=== PATIENT | female | born 1950 | race Caucasian/White ===

== ENCOUNTER 2024-11-08 09:28 | Outpatient (AMB) | payer MEDICARE, OTHER, SELFPAY ==
[2024-11-08 10:03] VITALS: BP 177/77; PULSE 181; RESP 19; TEMP 36.6; O2SAT 81; BMI 33.0
--- NOTE | 2024-11-08 10:03 | PD.ORTHCLVIS ---
Vital signs 11/08/24 10:03 Height 1.6 m Height Method Stated Weight 84.453 kg Weight Measurement Method Standing Scale BMI 33.0 BP 177/77 H Blood Pressure Source Automatic Cuff Blood Pressure Location Left Upper Arm Position Sitting Respiration 19 Pulse 181 H Pulse Source Monitor Temp 97.9 F Temp Source Temporal Artery Scan Pulse Oximetry (%) 81 L Oxygen Delivery Method Room Air Med/Allergies Allergies & Medications Allergies No Known Allergies Allergy (Verified 11/08/24 10:03) Medication Reconciliation acyclovir 400 mg tablet 400 mg PO QDAY 08/14/23 [History Confirmed 11/08/24] alendronate 10 mg tablet 10 mg PO QDAY 08/14/23 [History Confirmed 11/08/24] amlodipine 10 mg tablet 10 mg PO QDAY 08/14/23 [History Confirmed 11/08/24] atorvastatin 40 mg tablet 40 mg PO QDAY 08/14/23 [History Confirmed 11/08/24] baclofen 20 mg tablet 20 mg PO QDAY 08/14/23 [History Confirmed 11/08/24] ezetimibe 10 mg tablet 10 mg PO QDAY 08/14/23 [History Confirmed 11/08/24] furosemide 20 mg tablet 20 mg PO QDAY 08/14/23 [History Confirmed 11/08/24] gabapentin 300 mg capsule 300 mg PO QDAY 08/14/23 [History Confirmed 11/08/24] hydrocodone 7.5 mg-acetaminophen 325 mg/15 mL oral solution 15 ml PO QID PRN 08/14/23 [History Confirmed 11/08/24] levothyroxine 50 mcg tablet (Synthroid) 50 mcg PO QDAY 08/14/23 [History Confirmed 11/08/24] lidocaine 3.5 % topical patch patch topical 08/14/23 [History Confirmed 11/08/24] lisinopril 40 mg tablet 40 mg PO QDAY 08/14/23 [History Confirmed 11/08/24] metoprolol succ 50 mg-hydrochlorothiazide 12.5 mg tablet,ext.rel 24 hr tab PO 08/14/23 [History Confirmed 11/08/24] nortriptyline 50 mg capsule 50 mg PO QDAY 08/14/23 [History Confirmed 11/08/24] omeprazole 20 mg capsule,delayed release 20 mg PO QDAY 08/14/23 [History Confirmed 11/08/24] potassium chloride 10 mEq tablet,extended release (Klor-Con) 10 meq PO QDAY 08/14/23 [History Confirmed 11/08/24] sumatriptan succinate 100 mg tablet 100 mg PO Q2H PRN 08/14/23 [History Confirmed 11/08/24] Exam Exam Patient is in no acute distress and is cooperative with the examination today. Patient has a normal mood and affect. Breathing is nonlabored. In no respiratory distress. Bilateral extremities were evaluated and demonstrates sensation intact to light touch. Palpable pedal pulses are present. No significant edema is present. Bilateral hips demonstrate full strength and range of motion. She is tender to palpation over the greater trochanteric Assessment and Plan Problem List (1) Trochanteric bursitis of right hip: Status: Acute Plan: We discussed nonoperative and operative options for her trochanteric bursa. We will proceed with a right hip injection today in the bursa. We discussed the risk and benefits joint to proceed with this Recommend hip bursa cortisone injection as patient would like to proceed with conservative treatment at this time. The risks and benefits of the procedure were reviewed with the patient and patient gave verbal consent to continue with the procedure. Procedure: performed by Dr. Cody Using sterile technique the right hip bursa was thoroughly prepped with alcohol prep, and approximately 1 cc of Kenalog 40 mg/mL and 4 cc of 1% Lidocaine was injected without resistance. The patient tolerated the procedure well. Recommend hip bursa cortisone injection as patient would like to proceed with conservative treatment at this time. The risks and benefits of the procedure were reviewed with the patient and patient gave verbal consent to continue with the procedure. Procedure: performed by Dr. Cody Using sterile technique the left hip bursa was thoroughly prepped with alcohol prep, and approximately 1 cc of Kenalog 40 mg/mL and 4 cc of 1% Lidocaine was injected without resistance. The patient tolerated the procedure well. (2) Trochanteric bursitis, left hip: Status: Acute Advanced Care Planning Discussion Advance care planning discussed with:: patient Office Procedures GNS Level of Care Nursing/Assessment Patient Status: Established Patient Nursing Assessment/Reassesment: Medication Reconciliation, Update PMH in EMR and Vital Signs Coordination of Care: Complex Care and Chronic Disease 1-5, Education Complex Pt/Fam, Consent,records obtained, informed consent, Results/Orders obtained and Staff clarify orders Established Patient Charge Established Patient Point Assignment: 95 Established Patient Point Charge: EP Level 3 (80-115) Surgical Proc/IM SQ injection Major Surgical Procedure: Yes (BILATERAL HIP INJECTION ) Medication Given Medication Given Medication Given: Yes Documented Dose Given: 8 Route: Infiitration Medication Given Medication Given Medication Given: Yes Documented Dose Given: 2 Route: Infiitration Office Meds Xylocaine 10 mg/mL (1 %) injection solution Performing Provider: Lazarus Cody MD Performing Location: [facility] Administered by: Lazarus Cody MD on 11/08/24 10:18 Dose Route Admin Location Dispensed Lot Number Expiration Date [facility] Telecommunications Technician 40 mL Infiltration 40 mL [id number] [employer] triamcinolone acetonide 40 mg/mL suspension for injection Performing Provider: Lazarus Cody MD Performing Location: [facility] Administered by: Lazarus Cody MD on 11/08/24 10:18 Dose Route Admin Location Dispensed Lot Number Expiration Date 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 [employer] Required: No PCP or OBGYN visit in last 3 months: Yes Hx Now: No Do You Feel Safe at Home: Yes Authorities Contacted: N/A Questionairres Past Medical History Past Medical History Have you ever been diagnosed with any of the following: Respiratory Problems Smoking: No Smoking Cessation Counseling: No Smoking Exposure: No Tobacco Use: No Clubbing: No Subjective Visit Visit for: follow up visit Immunization / Flu Flu Vaccine in the Last 12 Months: No Flu Vaccine Exclusion Criteria: No Exclusion Criteria History of Present Illness Chief complaint: Bilateral hip trochanteric bursitis Albina is a 74-year-old female with bilateral hip trochanteric bursitis. She is done well with bilateral hip cortisone injections. It has been 3 months since the last when she would like new ones. She cannot take anti-inflammatories because of her kidneys Pain Pain level (0-10): 6 Pain duration: ALL DAY Pain location: inside (medial) and outside (lateral) Pain quality: sharp, aching and burning Pain timing: increases with activity Associated signs & symptoms: numbness and stiffness Ambulatory data Ambulatory device: cane Treatments Improvement with previous injections: No Improvement with PT: No Improvement with NSAIDS: no Review of Systems Review of Systems: All systems negative unless otherwise noted in HPI.
== END 2024-11-08 10:22 | disposition home or self-care (01) ==
LOC: HODSRG 09:28
PROVIDERS: PCP Family Medicine; Referring Provider Family Medicine; Supervising Provider Orthopaedic Surgery Adult Reconstructive Orthopaedic Surgery; Visit Provider Orthopaedic Surgery Adult Reconstructive Orthopaedic Surgery
DX: M70.61 Trochanteric bursitis, right hip (principal); M70.62 Trochanteric bursitis, left hip
CPT/HCPCS: 20610; 99213; J3301; J3490; G0463

== ENCOUNTER 2025-02-07 09:58 | Outpatient (AMB) | payer MEDICARE, OTHER, SELFPAY ==
[2025-02-07 10:18] VITALS: BP 147/69; PULSE 74; RESP 19; TEMP 36.5; O2SAT 97; BMI 32.2
--- NOTE | 2025-02-07 10:18 | ORTHONT_ITS ---
Vital signs 02/07/25 10:18 Height 1.6 m Height Method Stated Weight 82.554 kg Weight Measurement Method Stated by Patient BMI 32.2 BP 147/69 H Blood Pressure Source Automatic Cuff Blood Pressure Location Right Upper Arm Position Sitting Respiration 19 Pulse 74 Pulse Source Monitor Temp 97.7 F Temp Source Temporal Artery Scan Pulse Oximetry (%) 97 Oxygen Delivery Method Room Air Med/Allergies Allergies & Medications Allergies No Known Allergies Allergy (Verified 02/07/25 10:21) Medication Reconciliation acyclovir 400 mg tablet 400 mg PO QDAY 08/14/23 [History Confirmed 02/07/25] alendronate 10 mg tablet 10 mg PO QDAY 08/14/23 [History Confirmed 02/07/25] amlodipine 10 mg tablet 10 mg PO QDAY 08/14/23 [History Confirmed 02/07/25] atorvastatin 40 mg tablet 40 mg PO QDAY 08/14/23 [History Confirmed 02/07/25] baclofen 20 mg tablet 20 mg PO QDAY 08/14/23 [History Confirmed 02/07/25] ezetimibe 10 mg tablet 10 mg PO QDAY 08/14/23 [History Confirmed 02/07/25] furosemide 20 mg tablet 20 mg PO QDAY 08/14/23 [History Confirmed 02/07/25] gabapentin 300 mg capsule 300 mg PO QDAY 08/14/23 [History Confirmed 02/07/25] hydrocodone 7.5 mg-acetaminophen 325 mg/15 mL oral solution 15 ml PO QID PRN 08/14/23 [History Confirmed 02/07/25] levothyroxine 50 mcg tablet (Synthroid) 50 mcg PO QDAY 08/14/23 [History Confirmed 02/07/25] lidocaine 3.5 % topical patch patch topical 08/14/23 [History Confirmed 02/07/25] lisinopril 40 mg tablet 40 mg PO QDAY 08/14/23 [History Confirmed 02/07/25] metoprolol succ 50 mg-hydrochlorothiazide 12.5 mg tablet,ext.rel 24 hr tab PO 08/14/23 [History Confirmed 02/07/25] nortriptyline 50 mg capsule 50 mg PO QDAY 08/14/23 [History Confirmed 02/07/25] omeprazole 20 mg capsule,delayed release 20 mg PO QDAY 08/14/23 [History Confirmed 02/07/25] potassium chloride 10 mEq tablet,extended release (Klor-Con) 10 meq PO QDAY 08/14/23 [History Confirmed 02/07/25] sumatriptan succinate 100 mg tablet 100 mg PO Q2H PRN 08/14/23 [History Confirmed 02/07/25] Exam Exam Patient is in no acute distress and is cooperative with the examination today. Patient has a normal mood and affect. Breathing is nonlabored. In no respiratory distress. Bilateral extremities were evaluated and demonstrates sensation intact to light touch. Palpable pedal pulses are present. No significant edema is present. Bilateral hips demonstrate full strength and range of motion. She is tender to palpation over the greater trochanter Assessment and Plan Problem List (1) Trochanteric bursitis of right hip: Status: Acute Plan: We discussed nonoperative and operative options for her trochanteric bursa. We will proceed with a right hip injection today in the bursa. We discussed the risk and benefits joint to proceed with this Recommend hip bursa cortisone injection as patient would like to proceed with conservative treatment at this time. The risks and benefits of the procedure were reviewed with the patient and patient gave verbal consent to continue with the procedure. Procedure: performed by Dr. Cody Using sterile technique the right hip bursa was thoroughly prepped with alcohol prep, and approximately 1 cc of Kenalog 40 mg/mL and 4 cc of 1% Lidocaine was injected without resistance. The patient tolerated the procedure well. Recommend hip bursa cortisone injection as patient would like to proceed with conservative treatment at this time. The risks and benefits of the procedure were reviewed with the patient and patient gave verbal consent to continue with the procedure. Procedure: performed by Dr. Cody Using sterile technique the left hip bursa was thoroughly prepped with alcohol prep, and approximately 1 cc of Kenalog 40 mg/mL and 4 cc of 1% Lidocaine was injected without resistance. The patient tolerated the procedure well. (2) Trochanteric bursitis, left hip: Status: Acute Advanced Care Planning Discussion Advance care planning discussed with:: patient Office Procedures GNS Level of Care Nursing/Assessment Patient Status: Established Patient Nursing Assessment/Reassesment: Medication Reconciliation, Update PMH in EMR and Vital Signs Coordination of Care: Complex Care/Chronic Disease 5 or more, Education Complex Pt/Fam, Consent,records obtained, informed consent, Results/Orders obtained and Staff clarify orders Established Patient Charge Established Patient Point Assignment: 105 Established Patient Point Charge: EP Level 3 (80-115) Surgical Proc/IM SQ injection Major Surgical Procedure: Yes (BILATERAL HIP INJECTION ) Medication Given Medication Given Medication Given: Yes Documented Dose Given: 4 Route: Infiitration Medication Given Medication Given Medication Given: Yes Documented Dose Given: 2 Route: Infiitration Medication Given Medication Given Medication Given: Yes Documented Dose Given: 2 Route: Infiitration Office Meds Xylocaine 10 mg/mL (1 %) injection solution Performing Provider: Lazarus Cody MD Performing Location: [facility] Administered by: Lazarus Cody MD on 02/07/25 10:29 Dose Route Admin Location Dispensed Lot Number Expiration Date [facility] Registry Nurse 40 mL Infiltration 40 mL Xylocaine 10 mg/mL (1 %) injection solution Performing Provider: Lazarus Cody MD Performing Location: [facility] Administered by: Lazarus Cody MD on 02/07/25 10:26 Dose Route Admin Location Dispensed Lot Number Expiration Date [facility] Registry Nurse 40 mL Infiltration HIPS 40 mL [id number] [facility] triamcinolone acetonide 40 mg/mL suspension for injection Performing Provider: Lazarus Cody MD Performing Location: [facility] Administered by: Lazarus Cody MD on 02/07/25 10:26 Dose Route Admin Location Dispensed Lot Number Expiration Date [facility] Registry Nurse 80 mg intra-articular HIPS 2 mL [id number] 06/02/26 4692-7303-40 [employer] triamcinolone acetonide 40 mg/mL suspension for injection Performing Provider: Lazarus Cody MD Performing Location: [facility] Administered by: Lazarus Cody MD on 02/07/25 10:26 Dose Route Admin Location Dispensed Lot Number Expiration Date [facility] Registry Nurse 80 mg intra-articular 2 mL [id number] 06/02/26 2063-0539-56 [employer] [place] Intake Visit Data Collection New Patient or Established: Established Patient (seen at [facility] within 3 years) Reason for Visit:: BILATERAL HIP PAIN/INJECTION Settlement Agent Required: Yes Do You Feel Safe at Home: Yes Questionairres Past Medical History Past Medical History Have you ever been diagnosed with any of the following: Respiratory Problems Smoking: No Smoking Cessation Counseling: No Smoking Exposure: No Tobacco Use: No Clubbing: No Subjective Visit Visit for: follow up visit, hip and injections Immunization / Flu Flu Vaccine in the Last 12 Months: Yes Flu Vaccine Exclusion Criteria: No Exclusion Criteria and Already Received History of Present Illness Chief complaint: Bilateral hip trochanteric bursitis Albina is a 74-year-old female with bilateral hip trochanteric bursitis. She is done well with bilateral hip cortisone injections. It has been 3 months since the last when she would like new ones. She cannot take anti-inflammatories because of her kidneys Personal History Red flag PMH: BMI and none BMI Counceling provided: Yes Pain Pain level (0-10): 6 Pain duration: ALL DAY Pain location: inside (medial) and outside (lateral) Pain quality: sharp, aching and burning Pain timing: increases with activity Associated signs & symptoms: numbness and stiffness Ambulatory data Ambulatory device: cane Treatments Improvement with previous injections: No Improvement with PT: No Improvement with NSAIDS: no Review of Systems Review of Systems: All systems negative unless otherwise noted in HPI.
== END 2025-02-07 10:36 | disposition home or self-care (01) ==
LOC: HODSRG 09:58
PROVIDERS: PCP Family Medicine; Referring Provider Family Medicine; Supervising Provider Orthopaedic Surgery Adult Reconstructive Orthopaedic Surgery; Visit Provider Orthopaedic Surgery Adult Reconstructive Orthopaedic Surgery
DX: M70.61 Trochanteric bursitis, right hip (principal); M70.62 Trochanteric bursitis, left hip
CPT/HCPCS: 20610; 99213; J3301; J3490; G0463

== ENCOUNTER 2025-05-09 12:55 | Outpatient (AMB) | payer MEDICARE, OTHER, SELFPAY ==
--- NOTE | 2025-05-09 13:22 | ORTHONT_ITS ---
Vital signs 05/09/25 13:23 Height 1.6 m Height Method Stated Weight 84.482 kg Weight Measurement Method Standing Scale BMI 33.0 BP 115/67 Blood Pressure Source Automatic Cuff Blood Pressure Location Left Upper Arm Position Sitting Respiration 18 Pulse 76 Pulse Source Monitor Temp 97.6 F Temp Source Temporal Artery Scan Pulse Oximetry (%) 92 L Oxygen Delivery Method Room Air Med/Allergies Allergies & Medications Allergies No Known Allergies Allergy (Verified 05/09/25 13:27) Medication Reconciliation acyclovir 400 mg tablet 400 mg PO QDAY 08/14/23 [History Confirmed 05/09/25] alendronate 10 mg tablet 10 mg PO QDAY 08/14/23 [History Confirmed 05/09/25] amlodipine 10 mg tablet 10 mg PO QDAY 08/14/23 [History Confirmed 05/09/25] atorvastatin 40 mg tablet 40 mg PO QDAY 08/14/23 [History Confirmed 05/09/25] baclofen 20 mg tablet 20 mg PO QDAY 08/14/23 [History Confirmed 05/09/25] ezetimibe 10 mg tablet 10 mg PO QDAY 08/14/23 [History Confirmed 05/09/25] furosemide 20 mg tablet 20 mg PO QDAY 08/14/23 [History Confirmed 05/09/25] gabapentin 300 mg capsule 300 mg PO QDAY 08/14/23 [History Confirmed 05/09/25] hydrocodone 7.5 mg-acetaminophen 325 mg/15 mL oral solution 15 ml PO QID PRN 08/14/23 [History Confirmed 05/09/25] levothyroxine 50 mcg tablet (Synthroid) 50 mcg PO QDAY 08/14/23 [History Confirmed 05/09/25] lidocaine 3.5 % topical patch patch topical 08/14/23 [History Confirmed 05/09/25] lisinopril 40 mg tablet 40 mg PO QDAY 08/14/23 [History Confirmed 05/09/25] metoprolol succ 50 mg-hydrochlorothiazide 12.5 mg tablet,ext.rel 24 hr tab PO 08/14/23 [History Confirmed 05/09/25] nortriptyline 50 mg capsule 50 mg PO QDAY 08/14/23 [History Confirmed 05/09/25] omeprazole 20 mg capsule,delayed release 20 mg PO QDAY 08/14/23 [History Confirmed 05/09/25] potassium chloride 10 mEq tablet,extended release (Klor-Con) 10 meq PO QDAY 08/14/23 [History Confirmed 05/09/25] sumatriptan succinate 100 mg tablet 100 mg PO Q2H PRN 08/14/23 [History Confirmed 05/09/25] Exam Exam Patient is in no acute distress and is cooperative with the examination today. Patient has a normal mood and affect. Breathing is nonlabored. In no respiratory distress. Bilateral extremities were evaluated and demonstrates sensation intact to light touch. Palpable pedal pulses are present. No significant edema is present. Bilateral hips demonstrate full strength and range of motion. She is tender to palpation over the greater trochanter Assessment and Plan Problem List (1) Trochanteric bursitis of right hip: Status: Acute Plan: We discussed nonoperative and operative options for her trochanteric bursa. We will proceed with a right hip injection today in the bursa. We discussed the risk and benefits joint to proceed with this Recommend hip bursa cortisone injection as patient would like to proceed with conservative treatment at this time. The risks and benefits of the procedure were reviewed with the patient and patient gave verbal consent to continue with the procedure. Procedure: performed by Dr. Cody Using sterile technique the right hip bursa was thoroughly prepped with alcohol prep, and approximately 1 cc of Kenalog 40 mg/mL and 4 cc of 1% Lidocaine was injected without resistance. The patient tolerated the procedure well. Recommend hip bursa cortisone injection as patient would like to proceed with conservative treatment at this time. The risks and benefits of the procedure were reviewed with the patient and patient gave verbal consent to continue with the procedure. Procedure: performed by Dr. Cody Using sterile technique the left hip bursa was thoroughly prepped with alcohol prep, and approximately 1 cc of Kenalog 40 mg/mL and 4 cc of 1% Lidocaine was injected without resistance. The patient tolerated the procedure well. (2) Trochanteric bursitis, left hip: Status: Acute Advanced Care Planning Discussion Advance care planning discussed with:: patient Office Procedures GNS Level of Care Nursing/Assessment Patient Status: Established Patient Nursing Assessment/Reassesment: Medication Reconciliation, Update PMH in EMR and Vital Signs Coordination of Care: Complex Care and Chronic Disease 1-5, Education Complex Pt/Fam, Consent,records obtained, informed consent, Results/Orders obtained and Staff clarify orders Established Patient Charge Established Patient Point Assignment: 95 Established Patient Point Charge: EP Level 3 (80-115) Surgical Proc/IM SQ injection Major Surgical Procedure: Yes (BILATERAL HIP INJECTION) Medication Given Medication Given Medication Given: Yes Documented Dose Given: 8 Route: Infiitration Medication Given Medication Given Medication Given: Yes Documented Dose Given: 2 Route: Infiitration Office Meds Xylocaine 10 mg/mL (1 %) injection solution Performing Provider: Lazarus Cody MD Performing Location: [facility] Administered by: Lazarus Cody MD on 05/09/25 13:38 Dose Route Admin Location Dispensed Lot Number Expiration Date [facility] Insulation Board Head Saw Operator 40 mL Infiltration 40 mL [id number] 08/01/28 04981-306-78 [facility] triamcinolone acetonide 40 mg/mL suspension for injection Performing Provider: Lazarus Cody MD Performing Location: [facility] Administered by: Lazarus Cody MD on 05/09/25 13:38 Dose Route Admin Location Dispensed Lot Number Expiration Date [facility] Insulation Board Head Saw Operator 80 mg intra-articular 2 mL [id number] 12/01/26 21212-789-06 ANANYA FERRARO MA Intake Visit Data Collection New Patient or Established: Established Patient (seen at [facility] within 3 years) Reason for Visit:: BL HIP PAIN Seen by Clinical Staff ONLY (RN/MA): No PCP or OBGYN visit in last 3 months: Yes Hx Now: No Do You Feel Safe at Home: Yes Authorities Contacted: N/A Questionairres Past Medical History Past Medical History Have you ever been diagnosed with any of the following: Neurological Problems Cerebrovascular Accident (CVA): No Transient Ischemic Attacks (TIA): No Dementia: No Alzheimer's Disease: No Parkinson's Disease: No Brain Tumor: No Meningitis: No Seizures: No Epilepsy: No Multiple Sclerosis: No Cerebral Palsy: No Amyotrophic Lateral Sclerosis (ALS/Lily Gehrig's): No Guillain-[place] Syndrome: No Spina Bifida: No Paralysis: No Peripheral Neuropathy: No Flor's Palsy: No Subdural Hematoma: No Migraine: No Head Trauma: No Spinal Cord Injury: No Traumatic Brain Injury: No Cardiology Problems Myocardial Infarction: No Cardiac Arrhythmia: No Atrial Fibrillation: No Angina: No Heart Murmur: No Coronary Artery Disease: No Atherosclerotic Heart Disease: No Peripheral Vascular Disease: No Hypercholesterolemia: No Aneurysm: No Congestive Heart Failure: No Congenital Heart Disease: No Valvular Heart Disease: No Rheumatic Fever: No Cardiomyopathy: No Edema: No Pericarditis: No Cellulitis: No Deep Vein Thrombosis: No Hypertension: No Hypotension: No Varicose Veins: No Respiratory Problems Chronic Obstructive Pulmonary Disease (COPD): No Asthma: No Bronchitis: No Emphysema: No Pneumonia: No Pulmonary Fibrosis: No Tuberculosis: No Pulmonary Embolism: No Pulmonary Edema: No Sleep Apnea: No CPAP Dependent: No Respiratory Aspiration: No Dyspnea: No Orthopnea: No Hx Cough: No Cough: No Wheezing: No Chest Deformities: No Smoking: No Smoking Cessation Counseling: No Smoking Exposure: No Tobacco Use: No Clubbing: No Exposure to Respiratory Irritants: No Intubation: No Stomache/Intestinal Problems Liver Cancer: No Hepatitis: No Cirrhosis: No Pancreatic Cancer: No Pancreatitis: No Celiac Disease: No Gall Bladder Disease: No Gastrointestinal Bleed: No Esophageal Varices: No Hopper's Esophagus: No Colitis: No Ulcerative Colitis: No Diverticulitis: No Diverticulosis: No Ulcer: No Colorectal Cancer: No Irritable Bowel: No Crohn's Disease: No Obstructive Bowel: No Hiatal Hernia: No Hemorrhoids: No Gastroesophageal Reflux Disease: No Polyps: No Obesity: No Genital/Urinary Problems Chronic Kidney Disease: No Renal Disease: No Kidney Stones: No Polycystic Kidney Disease: No Neurogenic Bladder: No Inguinal Hernia: No Dialysis: No Reproductive Problems Breast Cancer: No Endometriosis: No Fibroids: No Genital Herpes: No Gonorrhea: No Pelvic Inflammatory Disease: No Polycystic Ovarian Syndrome: No Previous Pregnancies: No Musculoskeletal Problems Muscular Dystrophy: No Myasthenia Gravis: No Marfan's Syndrome: No Bone Cancer: No Arthritis: No Rheumatoid Arthritis: No Osteoporosis: No Degenerative Disk Disease: No Gout: No Scoliosis: No Carpal Tunnel Syndrome: No Fibromyalgia: No Fractures: No Degenerative Joint Disease: No Osteomyelitis: No Poliovirus: No Head,Eye,Nose,Throat Problems Cataracts: No Glaucoma: No Blind: No Retinal Detachment: No Macular Degeneration: No Chronic Ear Infections: No Deafness: No Eye Prosthesis: No Endocrine Problems Diabetes Mellitus Type 1: No Diabetes Mellitus Type 2: No Hypoglycemia: No Collins's Syndrome: No [place]'s Disease: No Hyperthyroidism: No Hypothyroidism: No Thyroid Cancer: No Parathyroid Disease: No Pituitary Disease: No Systemic Lupus Erythematosus: No Syndrome of Inappropriate Antidiuretic Hormone: No Adrenal Disease: No Graves' Disease: No Blood Problems Anemia: No Leukemia: No Hemophilia: No Thalassemia: No Sickle Cell Disease: No Clotting Problems: No Psychologic Problems Schizophrenia: No Recreational Drug Use: No Bipolar Disorder: No Depression: No Anxiety: No Behavior Problems: No Self-Mutilation: No Attention Deficit Disorder: No Attention Deficit Hyperactivity Disorder: No Depression: No Post Traumatic Stress Disorder: No Eating Disorder: No Other Problems Hospitalization: No Autoimmune Disease: No Down Syndrome: No Autism: No Developmental Delay: No Cosmetic Surgery: No Shingles: No Falls: No Blood Transfusions: No Blood Transfusion Reaction: No Anesthesia Reactions: No Organ Transplant: No Chemotherapy: No Radiation Therapy: No Hyperbaric Therapy: No MRSA: No VRSA: No Vancomycin-Resistant Enterococci: No Human Immunodeficiency Virus (HIV): No Chicken Pox: No Measles: No Mumps: No Rubella (Stateless Measles): No Pertussis: No Klebsiella Pneumoniae Carbapenemase Producing Bacteria: No Clostridium Difficile: No Hepatitis A: No Hepatitis B: No Hepatitis C: No Communicable Disease: No Cancer: No Cervical Cancer: No Lung Cancer: No Ovarian Cancer: No Surgical History Angioplasty: No Appendectomy: No Bariatric Surgery: No Breast Surgery: No Cancer Surgery: No Carotid Endarterectomy: No Cholecystectomy: No Colectomy: No Colostomy: No Coronary Artery Bypass Graft: No Valve Replacement: No Herniorrhaphy: No Total Hip Replacement: No Total Knee Replacement: No Hysterectomy: No Pacemaker: No Sinus Surgery: No Splenectomy: No TAHBSO-Total Abdominal Hysterectomy: No Thyroidectomy: No Ureter Stent: No Subjective Visit Visit for: follow up visit, knee and injections Immunization / Flu Flu Vaccine in the Last 12 Months: Yes Flu Vaccine Exclusion Criteria: Already Received History of Present Illness Chief complaint: Bilateral hip trochanteric bursitis Albina is a 74-year-old female with bilateral hip trochanteric bursitis. She is done well with bilateral hip cortisone injections. It has been 3 months since the last when she would like new ones. She cannot take anti-inflammatories because of her kidneys Personal History Red flag PMH: BMI and none BMI Counceling provided: Yes Pain Pain level (0-10): 6 Pain duration: ALL DAY Pain location: inside (medial) and outside (lateral) Pain quality: sharp, aching and burning Pain timing: increases with activity Associated signs & symptoms: numbness and stiffness Ambulatory data Ambulatory device: cane Treatments Improvement with previous injections: No Improvement with PT: No Improvement with NSAIDS: no Review of Systems Review of Systems: All systems negative unless otherwise noted in HPI.
[2025-05-09 13:23] VITALS: BP 115/67; PULSE 76; RESP 18; TEMP 36.4; O2SAT 92; BMI 33.0
== END 2025-05-09 13:32 | disposition home or self-care (01) ==
PROVIDERS: PCP Family Medicine; Referring Provider Family Medicine; Supervising Provider Orthopaedic Surgery Adult Reconstructive Orthopaedic Surgery; Visit Provider Orthopaedic Surgery Adult Reconstructive Orthopaedic Surgery
DX: M70.61 Trochanteric bursitis, right hip (principal); M70.62 Trochanteric bursitis, left hip
CPT/HCPCS: 20610; 99213; J3301; J3490; G0463

== ENCOUNTER 2025-08-22 10:54 | Outpatient (AMB) | payer MEDICARE, OTHER, SELFPAY ==
--- NOTE | 2025-08-22 11:21 | ORTHONT_ITS ---
Vital signs 08/22/25 11:22 Height 1.6 m Height Method Stated Weight 82.157 kg Weight Measurement Method Standing Scale BMI 32.1 BP 152/75 H Blood Pressure Source Automatic Cuff Blood Pressure Location Left Upper Arm Position Sitting Respiration 19 Pulse 67 Pulse Source Monitor Temp 98.0 F Temp Source Temporal Artery Scan Pulse Oximetry (%) 90 L Oxygen Delivery Method Room Air Med/Allergies Allergies & Medications Allergies No Known Allergies Allergy (Verified 08/22/25 11:22) Medication Reconciliation acyclovir 400 mg tablet 400 mg PO QDAY 08/14/23 [History Confirmed 08/22/25] alendronate 10 mg tablet 10 mg PO QDAY 08/14/23 [History Confirmed 08/22/25] amlodipine 10 mg tablet 10 mg PO QDAY 08/14/23 [History Confirmed 08/22/25] atorvastatin 40 mg tablet 40 mg PO QDAY 08/14/23 [History Confirmed 08/22/25] baclofen 20 mg tablet 20 mg PO QDAY 08/14/23 [History Confirmed 08/22/25] ezetimibe 10 mg tablet 10 mg PO QDAY 08/14/23 [History Confirmed 08/22/25] furosemide 20 mg tablet 20 mg PO QDAY 08/14/23 [History Confirmed 08/22/25] gabapentin 300 mg capsule 300 mg PO QDAY 08/14/23 [History Confirmed 08/22/25] hydrocodone 7.5 mg-acetaminophen 325 mg/15 mL oral solution 15 ml PO QID PRN 08/14/23 [History Confirmed 08/22/25] levothyroxine 50 mcg tablet (Synthroid) 50 mcg PO QDAY 08/14/23 [History Confirmed 08/22/25] lidocaine 3.5 % topical patch patch topical 08/14/23 [History Confirmed 08/22/25] lisinopril 40 mg tablet 40 mg PO QDAY 08/14/23 [History Confirmed 08/22/25] metoprolol succ 50 mg-hydrochlorothiazide 12.5 mg tablet,ext.rel 24 hr tab PO 08/14/23 [History Confirmed 08/22/25] nortriptyline 50 mg capsule 50 mg PO QDAY 08/14/23 [History Confirmed 08/22/25] omeprazole 20 mg capsule,delayed release 20 mg PO QDAY 08/14/23 [History Confirmed 08/22/25] potassium chloride 10 mEq tablet,extended release (Klor-Con) 10 meq PO QDAY 08/14/23 [History Confirmed 08/22/25] sumatriptan succinate 100 mg tablet 100 mg PO Q2H PRN 08/14/23 [History Confirmed 08/22/25] Exam Exam Patient is in no acute distress and is cooperative with the examination today. Patient has a normal mood and affect. Breathing is nonlabored. In no respiratory distress. Bilateral extremities were evaluated and demonstrates sensation intact to light touch. Palpable pedal pulses are present. No significant edema is present. Bilateral hips demonstrate full strength and range of motion. She is tender to palpation over the greater trochanter Assessment and Plan Problem List (1) Trochanteric bursitis of right hip: Status: Acute Plan: We discussed nonoperative and operative options for her trochanteric bursa. We will proceed with a right hip injection today in the bursa. We discussed the risk and benefits joint to proceed with this Recommend hip bursa cortisone injection as patient would like to proceed with conservative treatment at this time. The risks and benefits of the procedure were reviewed with the patient and patient gave verbal consent to continue with the procedure. Procedure: performed by Dr. Cody Using sterile technique the right hip bursa was thoroughly prepped with alcohol prep, and approximately 1 cc of methylprednisolone and 4 cc of ropivacaine was injected without resistance. The patient tolerated the procedure well. Recommend hip bursa cortisone injection as patient would like to proceed with conservative treatment at this time. The risks and benefits of the procedure were reviewed with the patient and patient gave verbal consent to continue with the procedure. Procedure: performed by Dr. Cody Using sterile technique the left hip bursa was thoroughly prepped with alcohol prep, and approximately 1 cc of methylprednisolone and 4 cc of ropivacaine was injected without resistance. The patient tolerated the procedure well. (2) Trochanteric bursitis, left hip: Status: Acute Advanced Care Planning Discussion Advance care planning discussed with:: patient Office Procedures GNS Level of Care Nursing/Assessment Patient Status: Established Patient Nursing Assessment/Reassesment: Medication Reconciliation, Update PMH in EMR and Vital Signs Coordination of Care: Complex Care and Chronic Disease 1-5, Education Complex Pt/Fam, Consent,records obtained, informed consent, Results/Orders obtained and Staff clarify orders Established Patient Charge Established Patient Point Assignment: 95 Established Patient Point Charge: EP Level 3 (80-115) Surgical Proc/IM SQ injection Minor Surgical Procedure: Yes (BILATERAL HIP INJECTION) MA Intake Visit Data Collection New Patient or Established: Established Patient (seen at [facility] within 3 years) Reason for Visit:: BL HIP PAIN Seen by Clinical Staff ONLY (RN/MA): No PCP or OBGYN visit in last 3 months: Yes Hx Now: No Do You Feel Safe at Home: Yes Authorities Contacted: N/A Questionairres Past Medical History Past Medical History Have you ever been diagnosed with any of the following: Neurological Problems Cerebrovascular Accident (CVA): No Transient Ischemic Attacks (TIA): No Dementia: No Alzheimer's Disease: No Parkinson's Disease: No Brain Tumor: No Meningitis: No Seizures: No Epilepsy: No Multiple Sclerosis: No Cerebral Palsy: No Amyotrophic Lateral Sclerosis (ALS/Lily Gehrig's): No Guillain-[place] Syndrome: No Spina Bifida: No Paralysis: No Peripheral Neuropathy: No Flor's Palsy: No Subdural Hematoma: No Migraine: No Head Trauma: No Spinal Cord Injury: No Traumatic Brain Injury: No Cardiology Problems Myocardial Infarction: No Cardiac Arrhythmia: No Atrial Fibrillation: No Angina: No Heart Murmur: No Coronary Artery Disease: No Atherosclerotic Heart Disease: No Peripheral Vascular Disease: No Hypercholesterolemia: No Aneurysm: No Congestive Heart Failure: No Congenital Heart Disease: No Valvular Heart Disease: No Rheumatic Fever: No Cardiomyopathy: No Edema: No Pericarditis: No Cellulitis: No Deep Vein Thrombosis: No Hypertension: No Hypotension: No Varicose Veins: No Respiratory Problems Chronic Obstructive Pulmonary Disease (COPD): No Asthma: No Bronchitis: No Emphysema: No Pneumonia: No Pulmonary Fibrosis: No Tuberculosis: No Pulmonary Embolism: No Pulmonary Edema: No Sleep Apnea: No CPAP Dependent: No Respiratory Aspiration: No Dyspnea: No Orthopnea: No Hx Cough: No Cough: No Wheezing: No Chest Deformities: No Smoking: No Smoking Cessation Counseling: No Smoking Exposure: No Tobacco Use: No Clubbing: No Exposure to Respiratory Irritants: No Intubation: No Stomache/Intestinal Problems Liver Cancer: No Hepatitis: No Cirrhosis: No Pancreatic Cancer: No Pancreatitis: No Celiac Disease: No Gall Bladder Disease: No Gastrointestinal Bleed: No Esophageal Varices: No Hopper's Esophagus: No Colitis: No Ulcerative Colitis: No Diverticulitis: No Diverticulosis: No Ulcer: No Colorectal Cancer: No Irritable Bowel: No Crohn's Disease: No Obstructive Bowel: No Hiatal Hernia: No Hemorrhoids: No Gastroesophageal Reflux Disease: No Polyps: No Obesity: No Genital/Urinary Problems Chronic Kidney Disease: No Renal Disease: No Kidney Stones: No Polycystic Kidney Disease: No Neurogenic Bladder: No Inguinal Hernia: No Dialysis: No Reproductive Problems Breast Cancer: No Endometriosis: No Fibroids: No Genital Herpes: No Gonorrhea: No Pelvic Inflammatory Disease: No Polycystic Ovarian Syndrome: No Previous Pregnancies: No Musculoskeletal Problems Muscular Dystrophy: No Myasthenia Gravis: No Marfan's Syndrome: No Bone Cancer: No Arthritis: No Rheumatoid Arthritis: No Osteoporosis: No Degenerative Disk Disease: No Gout: No Scoliosis: No Carpal Tunnel Syndrome: No Fibromyalgia: No Fractures: No Degenerative Joint Disease: No Osteomyelitis: No Poliovirus: No Head,Eye,Nose,Throat Problems Cataracts: No Glaucoma: No Blind: No Retinal Detachment: No Macular Degeneration: No Chronic Ear Infections: No Deafness: No Eye Prosthesis: No Endocrine Problems Diabetes Mellitus Type 1: No Diabetes Mellitus Type 2: No Hypoglycemia: No Ly's Syndrome: No [place]'s Disease: No Hyperthyroidism: No Hypothyroidism: No Thyroid Cancer: No Parathyroid Disease: No Pituitary Disease: No Systemic Lupus Erythematosus: No Syndrome of Inappropriate Antidiuretic Hormone: No Adrenal Disease: No Graves' Disease: No Blood Problems Anemia: No Leukemia: No Hemophilia: No Thalassemia: No Sickle Cell Disease: No Clotting Problems: No Psychologic Problems Schizophrenia: No Recreational Drug Use: No Bipolar Disorder: No Depression: No Anxiety: No Behavior Problems: No Self-Mutilation: No Attention Deficit Disorder: No Attention Deficit Hyperactivity Disorder: No Depression: No Post Traumatic Stress Disorder: No Eating Disorder: No Other Problems Hospitalization: No Autoimmune Disease: No Down Syndrome: No Autism: No Developmental Delay: No Cosmetic Surgery: No Shingles: No Falls: No Blood Transfusions: No Blood Transfusion Reaction: No Anesthesia Reactions: No Organ Transplant: No Chemotherapy: No Radiation Therapy: No Hyperbaric Therapy: No MRSA: No VRSA: No Vancomycin-Resistant Enterococci: No Human Immunodeficiency Virus (HIV): No Chicken Pox: No Measles: No Mumps: No Rubella ([place] Measles): No Pertussis: No Klebsiella Pneumoniae Carbapenemase Producing Bacteria: No Clostridium Difficile: No Hepatitis A: No Hepatitis B: No Hepatitis C: No Communicable Disease: No Cancer: No Cervical Cancer: No Lung Cancer: No Ovarian Cancer: No Surgical History Angioplasty: No Appendectomy: No Bariatric Surgery: No Breast Surgery: No Cancer Surgery: No Carotid Endarterectomy: No Cholecystectomy: No Colectomy: No Colostomy: No Coronary Artery Bypass Graft: No Valve Replacement: No Herniorrhaphy: No Total Hip Replacement: No Total Knee Replacement: No Hysterectomy: No Pacemaker: No Sinus Surgery: No Splenectomy: No TAHBSO-Total Abdominal Hysterectomy: No Thyroidectomy: No Ureter Stent: No Subjective Visit Visit for: follow up visit, knee and injections Immunization / Flu Flu Vaccine in the Last 12 Months: Yes Flu Vaccine Exclusion Criteria: Already Received History of Present Illness Chief complaint: Bilateral hip trochanteric bursitis Albina is a 74-year-old female with bilateral hip trochanteric bursitis. She is done well with bilateral hip cortisone injections. It has been 3 months since the last when she would like new ones. She cannot take anti-inflammatories because of her kidneys Personal History Red flag PMH: BMI and none BMI Counceling provided: Yes Pain Pain level (0-10): 6 Pain duration: ALL DAY Pain location: inside (medial) and outside (lateral) Pain quality: sharp, aching and burning Pain timing: increases with activity Associated signs & symptoms: numbness and stiffness Ambulatory data Ambulatory device: cane Treatments Improvement with previous injections: No Improvement with PT: No Improvement with NSAIDS: no Review of Systems Review of Systems: All systems negative unless otherwise noted in HPI.
[2025-08-22 11:22] VITALS: BP 152/75; PULSE 67; RESP 19; TEMP 36.7; O2SAT 90; BMI 32.1
== END 2025-08-22 11:43 | disposition home or self-care (01) ==
LOC: HODSRG 10:54
PROVIDERS: PCP Family Medicine; Referring Provider Family Medicine; Supervising Provider Orthopaedic Surgery Adult Reconstructive Orthopaedic Surgery; Visit Provider Orthopaedic Surgery Adult Reconstructive Orthopaedic Surgery
DX: M70.61 Trochanteric bursitis, right hip (principal); M70.62 Trochanteric bursitis, left hip
CPT/HCPCS: 20610; 99213; J1010; J2795; G0463